=== PATIENT | male | born 1960 | race Caucasian/White ===

== ENCOUNTER 2018-03-22 19:00 | Emergency (ER) | payer OTHER ==
[~2018-03-22] VITALS: Ht 188 cm; Wt 80.7 kg
--- NOTE | 2018-03-24 00:33 | EKG ---
[facility] [address] [facility] [place] [address] Signed Sinus bradycardia Left anterior fascicular block Abnormal ECG No previous ECGs available Confirmed by MELBA NEWELL MD ([id number] on 03/24/2018 12:32:56 AM Electronically Signed By: MELBA NEWELL MD 03/24/18 0033 PATIENT NAME: CHACHO GARCIARon CLEMONS Electrocardiogram DATE OF : 60 PHYSICIAN: MELBA NEWELL MD REPORT #: [id number] REPORT IS CONFIDENTIAL AND NOT TO BE RELEASED WITHOUT AUTHORIZATION
== END 2018-03-22 23:49 | disposition home or self-care (01) ==
LOC: ED 19:00
DX: R55 Syncope and collapse (principal); F17.200 Nicotine dependence, unspecified, uncomplicated
CPT/HCPCS: 71045; 80053; 84484; 85025; 93005; 93010; 96360; 99284-25; G0480; J7030